=== PATIENT | male | born 1940 | race Caucasian/White ===

== ENCOUNTER 2018-12-04 12:17 | Outpatient (REF) | payer MEDICARE, MEDICAID, SELFPAY ==
[2018-12-04 19:18] LABS: HCT 41.9 % (40.0-50.0); HGB 13.9 g/dL (13.5-17.5); Mean Corp. HGB Concentration 33.2 g/dL (32.0-36.0); Mean Corpuscular Hemoglobin 31.4 pg (27.0-33.0); Mean Corpuscular Volume 94.8 fL (80-95); Mean Platelet Volume 11.3 fL (8.0-11.0); Platelet Count 212 x1000/uL (130-400); RBC 4.42 m/cumm (4.50-6.00); RBC Distribution Width 13.1 % (11.8-14.1); White Blood Cell Count 5.01 k/cumm (4.4-10.8)
[2018-12-04 19:45] LABS: Anion Gap 6.6 mmol/L (3-11); BUN 25 mg/dL (7-18); CO2 31.4 mmol/L (21.0-32.0); CREATININE 1.26 mg/dL (0.70-1.30); Calcium 8.5 mg/dL (8.5-10.1); Chloride 102 mmol/L (98-107); Estimated GFR 55.64 (mL/min/1.73m2); Glucose 98 mg/dL (70-100); Potassium 3.6 mmol/L (3.5-5.1); Sodium 140 mmol/L (136-145)
[2018-12-06 12:10] LABS: Albumin 52.9 % (55.8-66.1); Monoclonal Spike 17.7 %; Total Protein 7.1 g/dl (6.3-8.2)
== END 2018-12-04 12:37 ==
LOC: NCHCN 12:17
PROVIDERS: PCP Internal Medicine; Visit Provider Internal Medicine
DX: I10 Essential (primary) hypertension (principal); N18.3 Chronic kidney disease, stage 3 (moderate); K11.7 Disturbances of salivary secretion; D47.2 Monoclonal gammopathy
CPT/HCPCS: 80048; 85027; 84165

== ENCOUNTER 2021-06-16 14:08 | Outpatient (REF) | payer MEDICARE, MEDICAID, SELFPAY ==
[2021-06-19 05:09] LABS: COVID-19 RT-PCR UVMMC Result Positive (Negative)
== END 2021-06-16 14:09 | disposition home or self-care (01) ==
LOC: NCHCN 14:08
PROVIDERS: PCP Internal Medicine; Visit Provider Nurse Practitioner Family
DX: Z20.822 Contact with and (suspected) exposure to COVID-19 (principal); R53.1 Weakness
CPT/HCPCS: U0003

== ENCOUNTER 2022-08-09 15:43 | Outpatient (REF) | payer MEDICARE, MEDICAID, SELFPAY ==
[2022-08-09 19:04] LABS: Abs Immature Grans 0.01 10^3/uL (0.0-0.06); Absolute Basophil Count 0.12 10^3/uL (0.0-0.2); Absolute Eosinophil Count 0.53 10^3/uL (0.0-0.7); Absolute Lymphocyte Count 1.12 10^3/uL (1.2-3.4); Absolute Monocyte Count 0.75 10^3/uL (0.1-0.8); Absolute Neutrophil Count 3.86 10^3/uL (1.2-6.7); Basophils % 1.9; Eosinophils % 8.3; HCT 41.8 % (40.0-50.0); HGB 13.6 g/dL (13.5-17.5); Immature Grans % 0.2; Lymphocytes % 17.5; MCH 31.6 pg (27.0-33.0); MCHC 32.5 % (32.0-36.0); MCV 97 fL (80-95); MPV 10.6 fL (8.0-11.0); Monocytes % 11.7; Neutrophils % 60.4; Platelet Count 267 10^3/uL (130-400); RBC 4.31 10^6/uL (4.36-5.78); RDW 12.7 % (11.8-14.1); RDW-SD 45.2 fL; WBC 6.39 10^3/uL (4.4-10.8)
[2022-08-09 19:31] LABS: Anion Gap 5.8 mmol/L (3-11); BUN 25 mg/dL (7-18); CO2 31.2 mmol/L (21.0-32.0); CREATININE 1.2 mg/dL (0.70-1.30); Calcium 9.1 mg/dL (8.5-10.1); Chloride 106 mmol/L (98-107); Estimated GFR 61.13 (mL/min/1.73m2); Glucose 105 mg/dL (74-106); Potassium 4.3 mmol/L (3.5-5.1); Sodium 143 mmol/L (136-145)
== END 2022-08-09 15:44 | disposition home or self-care (01) ==
LOC: NCHCN 15:43
PROVIDERS: PCP Internal Medicine; Visit Provider Internal Medicine
DX: N18.30 Chronic kidney disease, stage 3 unspecified (principal); I10 Essential (primary) hypertension; Z79.899 Other long term (current) drug therapy
CPT/HCPCS: 80048; 85025

== ENCOUNTER → 2023-06-14 12:40 | Outpatient (BNVA) | payer MEDICARE, MEDICAID, SELFPAY | PROVIDERS: PCP Internal Medicine; Referring Provider Internal Medicine; Visit Provider Psychiatry & Neurology Neurology | DX: R26.89 Other abnormalities of gait and mobility (principal); Z87.820 Personal history of traumatic brain injury; R47.1 Dysarthria and anarthria; K11.7 Disturbances of salivary secretion; R48.2 Apraxia; R13.10 Dysphagia, unspecified; G40.909 Epilepsy, unspecified, not intractable, without status epilepticus; G24.8 Other dystonia | CPT/HCPCS: 99205; G2212 ==